=== PATIENT | male | born 1985 | race Caucasian/White ===

== ENCOUNTER 2024-10-23 20:48 | Emergency (ER) | payer BC, SELFPAY ==
[2024-10-23 20:55] VITALS: BP 106/67; PULSE 63; RESP 16; TEMP 37.1; O2SAT 96
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
== END 2024-10-23 21:44 | disposition home or self-care (01) ==
LOC: ER 21:48
PROVIDERS: Emergency Provider Nurse Practitioner Family
DX: S09.8XXA Other specified injuries of head, initial encounter (principal); H93.11 Tinnitus, right ear; V48.0XXA Car driver injured in noncollision transport accident in nontraffic accident, initial encounter
CPT/HCPCS: 99283; 99282